=== PATIENT | female | born 1965 | race Caucasian/White ===

== ENCOUNTER 2018-01-10 13:42 | Emergency (ER) | payer MEDICAID ==
[2018-01-10] MEDS: KETOROLAC 60 MG INJ IM (15:01)
[2018-01-10] MEDS: DEXAMETHASONE 10 MG/ML 1 ML INJ IM (15:01)
== END 2018-01-10 15:14 | disposition home or self-care (01) ==
LOC: FTE 13:42
DX: M54.40 Lumbago with sciatica, unspecified side (principal)
CPT/HCPCS: 81025; 96372; 99284-25